=== PATIENT | male | born 1955 | race Caucasian/White ===

== ENCOUNTER → 2021-12-16 | Outpatient (CLI) | payer OTHER ==
[~2021-12-16] MED LIST: ASPI-630 PO; LOSA-73 PO; METF-658 PO; METO50TA6 PO; MULT-445 PO; SIMV80TA17 PO; SPIR25TA5 PO
--- NOTE | 2021-12-16 10:12 | PDOC ---
Progress Note - [facility] Date of Service: DOS: DATE: 12/16/21 TIME: 10:08 Diagnosis: Dx: Lumbar radiculopathy with lumbar degenerative disease and lumbar spinal stenosis History or Present Illness: HPI: 66-year-old male returns for follow-up status post initial evaluation and preauthorization for lumbar epidural steroid injection. Patient reports has been off work now for 2 weeks and the pain is subsided significantly in his low back and left lower extremity patient reports there is some minimal pain there but he has been increase his activity with greater ease and comfort with household activities distance walking sleeping much better at night occasionally wakes him some but not more than once a night patient reports he is doing much much better rates his pain is a 3 on scale 10 is worse over the past week 2 on average 1 its least is a 2 today. Patient reports no loss of motor function still some dull pain in the back and the leg radiating posterior gluteus lateral thigh anterior thigh medial thigh medial lower leg but very infrequent patient reports no new bowel or bladder incontinence no loss of motor function and only minimal fatigability in the left lower extremity currently. Again, patient is been off work for the past 2 weeks or so and has not been performing his daily work activities and feels pain is subsided significantly. Physical Exam: VS: Blood pressure is 137/80 pulse 63 respirations 18 temperature 97.5 F weight is 215 pounds. PE: PHYSICAL EXAMINATION: GENERAL: The patient is awake, alert, oriented, appropriate, very pleasant in demeanor HEENT: Shows normocephalic, atraumatic. Extraocular movements are intact and symmetrical. Oral cavity: Mucous membranes moist and pink. Dentition is intact. NECK: Shows anterior throat supple without palpable lymphadenopathy noted. Swallow reflex symmetrical. CHEST: Shows normal on inspection. Breath sounds are clear bilaterally, no rales or rhonchi auscultated. HEART: Shows S1, S2 clear. No murmurs auscultated. ABDOMEN: Soft, nontender, nondistended. No palpable organomegaly is noted. BACK: Shows spine grossly in the midline. Normal-appearing cervical lordotic curvature. There is slightly increased thoracic kyphosis, some minor flattening of the lumbar lordotic curvature. Lumbar paraspinous muscles show symmetrical on inspection, on palpation shows some moderate tenderness diffusely throughout the upper, middle and lower distribution of the paraspinous muscles, but without specific trigger points, without radiation of pain. The patient has good rotational motion of the lumbar spine, both laterally as well as extension and flexion without significant difficulty. EXTREMITIES: Lower extremities show deep tendon reflexes 2+ in the patellar and tendo calcaneus tendons. Motor exam is 5 on a scale of 5 with right dorsiflexion, extension, quadriceps and hamstring flexion and 4/5 on the left. Peripheral pulses are 1+ posterior tibial. No peripheral edema is noted bilaterally. Lower extremities are warm and dry. SKIN: Shows warm and dry, good turgor. No edema. No sores, rashes or bruising throughout. Procedure: Procedure: Options were discussed with patient. Patient's old chart was reviewed his current medication regimen updated current review of systems updated today as well. We will hold on any injections at this time as patient is doing quite a bit better with some extended rest, patient discusses wishing to go back to work encouraged him to do this cautiously and if the pain returns he will follow-up accordingly as necessary. Medication Injected: Med Injected: None Condition at Discharge: Condition at Discharge: Condition at discharge is stable. ANUJ KONG MD Dec 16, 2021 10:12
== END | disposition home or self-care (01) ==
LOC: PNCL 09:22
PROVIDERS: ATTEND Anesthesiology
DX: M51.16 Intervertebral disc disorders with radiculopathy, lumbar region (principal); M48.061 Spinal stenosis, lumbar region without neurogenic claudication; Z79.82 Long term (current) use of aspirin; Z79.899 Other long term (current) drug therapy
CPT/HCPCS: 99212; G0463